=== PATIENT | female | born 1940 | race Caucasian/White ===

== ENCOUNTER → 2017-02-10 | Outpatient (CLI) | payer MEDICARE, BC ==
[2017-02-10 08:26] LABS: ALBUMIN 4.4 G/DL (3.5-5.0); ALBUMIN/GLOBULIN RATIO 1.8 RATIO (1.1-2.2); ALKALINE PHOSPHATASE 64 U/L (38-126); ALT (SGPT) 39 U/L (9-52); ANION GAP 11 MEQ/L (5-15); AST (SGOT) 32 U/L (14-36); BUN/CREATININE RATIO 15 RATIO (6-26); CALCIUM 9.5 MG/DL (8.4-10.2); CHLORIDE 107 MEQ/L (98-107); CO2 - CARBON DIOXIDE 31 MEQ/L (22-30); CREATININE 1.1 MG/DL (0.7-1.2); GLOMERULAR FILTRATION RATE 48; GLUCOSE 92 MG/DL (65-110); POTASSIUM 4.1 MEQ/L (3.6-5); SODIUM 149 MEQ/L (134-144); TOTAL PROTEIN 6.9 G/DL (6.3-8.2)
[2017-02-10 08:50] LABS: CK - CPK 117 U/L (30-135)
[2017-02-10 08:54] LABS: DIGOXIN 0.7 NG/ML (0.8-2.0)
--- NOTE | 2017-02-10 10:32 | DI ---
Indication: ITS.REASON: I65.23 Occlusion and stenosis of bilateral carotid arteries PROCEDURE: US CAROTID DOPP COMPLETE: TECHNIQUE: Grayscale, color and duplex Doppler imaging was performed of the carotid systems bilaterally. There is no evidence of significant plaque formation or luminal narrowing on grayscale imaging. Waveform analysis is unremarkable. Velocities are normal and as follows (in cm/sec) RIGHT: PSV ICA 55 PDV ICA 22 PSV CCA 69 PDV CCA 21 SVR 0.7 PSV ECA 90 ICA Diameter reduction 10%-30% (1.0-1.2 PSV<110)% LEFT: PSV ICA 86 PDV ICA 32 PSV CCA 73 PDV CCA 21 SVR 1.2 PSV ECA 42 ICA Diameter reduction 10%-30% (1.0-1.2 PSV<110)% The right vertebral artery is patent with cephalic flow. The left vertebral artery is patent with cephalic flow. IMPRESSION: No hemodynamically significant stenosis identified. .
== END ==
LOC: IMA 07:40
PROVIDERS: ATTEND Internal Medicine Cardiovascular Disease
DX: E78.4 Other hyperlipidemia (principal); I65.23 Occlusion and stenosis of bilateral carotid arteries; Z79.899 Other long term (current) drug therapy
CPT/HCPCS: 36415; 80053; 80162; 82550; 83718; 83721; 84478